=== PATIENT | female | born 1985 | race American Indian/Alaskan Native ===

== ENCOUNTER 2017-10-05 07:32 | Emergency (ER) | payer OTHER ==
[2017-10-05 09:03] LABS: Basophils % (Auto) 0.5 % (0.0-1.8); Eosinophils # (Auto) 0.1 K/mm3 (0.0-0.4); Eosinophils % (Auto) 1.2 % (0.0-4.3); Hematocrit 36.7 % (30.3-42.9); Lymphocytes # (Auto) 2.1 K/mm3 (1.2-5.4); Lymphocytes % (Auto) 36.1 % (13.4-35.0); Mean Corpuscular HGB Conc 33 % (30-34); Mean Corpuscular Hemoglobin 28 pg (28-32); Mean Corpuscular Volume 86 fl (79-97); Monocytes # (Auto) 0.6 K/mm3 (0.0-0.8); Monocytes % (Auto) 9.6 % (0.0-7.3); Platelet Count 362 K/mm3 (140-440); Red Blood Count 4.29 M/mm3 (3.65-5.03); Red Cell Distribution Width 12.9 % (13.2-15.2)
[2017-10-05 09:15] LABS: Alanine Aminotransferase 8 units/L (7-56); BUN/Creatinine Ratio 8; Blood Urea Nitrogen 6 mg/dL (7-17); Hemolysis Index 2
[2017-10-05 09:42] LABS: Bilirubin,Urine NEG (Negative); Blood,Urine NEG (Negative); Color,Urine Yellow (Yellow); Mucus,Urine FEW /HPF; Protein,Urine <15 mg/dL mg/dL (Negative); Urobilinogen,Urine < 2.0 mg/dL (<2.0)
[2017-10-05] MEDS ORDERED: SUBLIMAZE IV ONE ×2 (10:53→13:15)
[2017-10-05] MEDS ORDERED: NACL 0.9% 1000 ML 1,000 ML IV ONE (10:53)
[2017-10-05] MEDS ORDERED: ZOFRAN IV ONE (10:53)
--- NOTE | 2017-10-05 10:58 | Emergency Department Report ---
HPI - General Chief Complaint: Abdominal Pain Time Seen by Provider: 10/05/17 10:44 - HPI HPI: Room 24 The patient is a 31-year-old female presenting with a chief complaint abdominal pain. The patient states for the past 4 days she's had a constant right lower quadrant abdominal pain described as sharp in nature. Patient states Tylenol does not help. Patient denies nausea vomiting or diarrhea. Patient denies fever. Patient denies dysuria, hematuria or vaginal discharge. The patient states her last meal occurred at midnight. Patient states she does have an appetite "now." The patient gives her pain score 10/10 Location: Right lower quadrant abdomen Duration: Constant 4 days Quality: Sharp Severity: 10/10 Modifying factors: [see above] Context: [see above] Mode of transportation: [not driving] ED Past Medical Hx - Past Medical History Hx Asthma: Yes Additional medical history: ulcer - Surgical History Past Surgical History?: No - Family History Family history: no significant - Social History Smoking Status: Never Smoker Substance Use Type: None (denies illicit drug use) - Medications Home Medications: Home Medications Medication Instructions Recorded Confirmed Last Taken Type Docusate Sodium [Colace] 100 mg PO BID PRN #20 capsule 10/05/17 Unknown Rx HYDROcodone/APAP 5-325 [[place] 1 - 2 each PO Q6HR PRN #14 tablet 10/05/17 Unknown Rx 5/325] ED Review of Systems ROS: Stated complaint: RIGHT LOWER ABD PAIN Other details as noted in HPI Constitutional: denies: fever Gastrointestinal: abdominal pain. denies: nausea, vomiting, diarrhea Genitourinary: denies: dysuria, hematuria, discharge Physical Exam - Physical Exam Vital Signs: Vital Signs 10/05/17 07:42 Temperature 98.9 F Pulse Rate 75 Respiratory 18 Rate Blood Pressure 135/84 O2 Sat by Pulse 99 Oximetry Physical Exam: GENERAL: The patient is well-developed well-nourished female lying on stretcher not appearing to be in acute distress. [] HEENT: Normocephalic. Atraumatic. Extraocular motions are intact. Patient has moist mucous membranes. NECK: Supple. Trachea midline CHEST/LUNGS: Clear to auscultation. There is no respiratory distress noted. HEART/CARDIOVASCULAR: Regular. There is no tachycardia. There is no gallop rub or murmur. ABDOMEN: Abdomen is soft, with tenderness to palpation in the right lower quadrant. Absent Pabon's sign. Patient has normal bowel sounds. There is no abdominal distention. SKIN: There is no rash. There is no edema. There is no diaphoresis. NEURO: The patient is awake, alert, and oriented. The patient is cooperative. The patient has normal speech MUSCULOSKELETAL: There is no evidence of acute injury. ED Course Vital Signs 10/05/17 07:42 Temperature 98.9 F Pulse Rate 75 Respiratory 18 Rate Blood Pressure 135/84 O2 Sat by Pulse 99 Oximetry - Reevaluation(s) Reevaluation #1: 10/05/17 12:57 Ventral hernia easily reduced with direct pressure. ED Medical Decision Making - Lab Data Result diagrams: 10/05/17 08:35 10/05/17 08:35 Laboratory Tests 10/05/17 10/05/17 10/05/17 08:28 08:35 08:35 WBC 6.0 RBC 4.29 Hgb 12.0 Hct 36.7 MCV 86 MCH 28 MCHC 33 RDW 12.9 L Plt Count 362 Lymph % (Auto) 36.1 H Starke % (Auto) 9.6 H Eos % (Auto) 1.2 Baso % (Auto) 0.5 Lymph # 2.1 Starke # 0.6 Eos # 0.1 Baso # 0.0 Seg Neutrophils % 52.6 Seg Neutrophils # 3.1 Sodium 142 Potassium 4.1 Chloride 103.6 Carbon Dioxide 27 Anion Gap 16 BUN 6 L Creatinine 0.8 Estimated GFR > 60 BUN/Creatinine Ratio 8 Glucose 84 Calcium 9.0 Total Bilirubin 0.40 AST 17 ALT 8 Alkaline Phosphatase 45 Total Protein 8.0 Albumin 4.0 Albumin/Globulin Ratio 1.0 HCG, Qual Urine Color Yellow Urine Turbidity Clear Urine pH 7.0 Ur Specific Cunningham 1.006 Urine Protein <15 mg/dl Urine Glucose (UA) Neg Urine Ketones Neg Urine Blood Neg Urine Nitrite Neg Urine Bilirubin Neg Urine Urobilinogen < 2.0 Ur Leukocyte Esterase Tr Urine WBC (Auto) 2.0 Urine RBC (Auto) 2.0 U Epithel Cells (Auto) 3.0 Urine Mucus Few 10/05/17 08:35 WBC RBC Hgb Hct MCV MCH MCHC RDW Plt Count Lymph % (Auto) Starke % (Auto) Eos % (Auto) Baso % (Auto) Lymph # Starke # Eos # Baso # Seg Neutrophils % Seg Neutrophils # Sodium Potassium Chloride Carbon Dioxide Anion Gap BUN Creatinine Estimated GFR BUN/Creatinine Ratio Glucose Calcium Total Bilirubin AST ALT Alkaline Phosphatase Total Protein Albumin Albumin/Globulin Ratio HCG, Qual Negative Urine Color Urine Turbidity Urine pH Ur Specific Cunningham Urine Protein Urine Glucose (UA) Urine Ketones Urine Blood Urine Nitrite Urine Bilirubin Urine Urobilinogen Ur Leukocyte Esterase Urine WBC (Auto) Urine RBC (Auto) U Epithel Cells (Auto) Urine Mucus - Radiology Data Radiology results: report reviewed (CT abdomen and pelvis), image reviewed (CT abdomen and pelvis) [facility] [address] [place] [address] Cat Scan Report Signed Patient: NATI PERALES MR#: [id number] : 1985 Acct:[id number] Age/Sex: 31 / F ADM Date: 10/05/17 Loc: ED Attending Dr: Ordering Physician: KELY CHAVARRIA MD Date of Service: 10/05/17 Procedure(s): CT abdomen pelvis w con Accession Number(s): [id number] cc: KELY CHAVARRIA MD CT scan of abdomen and pelvis with IV contrast: History: Right lower quadrant abdominal pain. Findings: Normal lung bases. No pleural or pericardial effusion. Normal liver spleen pancreas and gallbladder. Normal adrenals kidney parenchyma and bladder. No free intraperitoneal fluid or air. No evidence of adenopathy. Normal aorta. Fluid-filled loops of small bowel without bowel distention. There is a moderate size ventral hernia noted containing loops of small bowel. Gaseous colon with stool in colon. Normal appendix. Impression: Moderate size ventral hernia containing loops of small bowel. No bowel distention. Transcribed By: PTP Dictated By: SUSAN HERRERA MD Electronically Authenticated By: SUSAN HERRERA MD Signed Date/Time: 10/05/17 122 DD/ 19 TD/TT: 10/05/171225 - Differential Diagnosis appendicitis, renal colic, UTI, pyelonephritis Critical care attestation.: If time is entered above; I have spent that time in minutes in the direct care of this critically ill patient, excluding procedure time. ED Disposition Clinical Impression: Ventral hernia Disposition: DC-01 TO HOME OR SELFCARE Is pt being admited?: No Does the pt Need Aspirin: No Condition: Stable Instructions: Abdominal Pain (ED), Hiatal Hernia (ED) Additional Instructions: Return to the emergency department immediately should you develop worsening symptoms, fever, inability to tolerate food or liquid or any other concerns. Prescriptions: Docusate Sodium [Colace] 100 mg PO BID PRN #20 capsule PRN Reason: Constipation HYDROcodone/APAP 5-325 [[place] 5/325] 1 - 2 each PO Q6HR PRN #14 tablet PRN Reason: Pain Referrals: PRIMARY CARE, [Primary Care Provider] - 3-5 Days BRANDEE DONOHUE MD [Staff Physician] - [facility] (Dr. Donohue is a surgeon. Please follow up with him for further evaluation of your hernia) Time of Disposition: 12:59
[2017-10-05] MEDS ORDERED: NACL ONE (11:02)
--- NOTE | 2017-10-05 12:47 | Cat Scan Report ---
CT scan of abdomen and pelvis with IV contrast: History: Right lower quadrant abdominal pain. Findings: Normal lung bases. No pleural or pericardial effusion. Normal liver spleen pancreas and gallbladder. Normal adrenals kidney parenchyma and bladder. No free intraperitoneal fluid or air. No evidence of adenopathy. Normal aorta. Fluid-filled loops of small bowel without bowel distention. There is a moderate size ventral hernia noted containing loops of small bowel. Gaseous colon with stool in colon. Normal appendix. Impression: Moderate size ventral hernia containing loops of small bowel. No bowel distention.
[2017-10-05 16:15] VITALS: BP 132/82
== END 2017-10-05 16:12 | disposition home or self-care (01) ==
LOC: ED 07:32
DX: K43.9 Ventral hernia without obstruction or gangrene (principal)
CPT/HCPCS: 36415; 74177; 80053; 81001; 84703; 85025; 96374; 96375; 99284; J3010; Q9967

== ENCOUNTER 2017-11-12 10:32 | Emergency (ER) | payer SELFPAY ==
[2017-11-12 12:24] LABS: Bilirubin,Urine NEG (Negative); Blood,Urine NEG (Negative); Color,Urine Straw (Yellow); Protein,Urine <15 mg/dL mg/dL (Negative); Urobilinogen,Urine < 2.0 mg/dL (<2.0); WBC,Urine < 1.0 /HPF (0.0-6.0)
[2017-11-12 12:26] LABS: HCG Qualitative,Urine Negative (Negative)
[2017-11-12 12:36] LABS: Basophils % (Auto) 0.8 % (0.0-1.8); Eosinophils # (Auto) 0.1 K/mm3 (0.0-0.4); Eosinophils % (Auto) 0.9 % (0.0-4.3); Hematocrit 35.4 % (30.3-42.9); Hemoglobin 11.7 gm/dl (10.1-14.3); Lymphocytes # (Auto) 1.7 K/mm3 (1.2-5.4); Lymphocytes % (Auto) 29.2 % (13.4-35.0); Mean Corpuscular HGB Conc 33 % (30-34); Mean Corpuscular Hemoglobin 29 pg (28-32); Mean Corpuscular Volume 87 fl (79-97); Monocytes # (Auto) 0.5 K/mm3 (0.0-0.8); Monocytes % (Auto) 8.5 % (0.0-7.3); Platelet Count 371 K/mm3 (140-440); Red Blood Count 4.05 M/mm3 (3.65-5.03); Red Cell Distribution Width 12.9 % (13.2-15.2)
[2017-11-12 12:40] LABS: Alanine Aminotransferase 12 units/L (7-56); BUN/Creatinine Ratio 15; Blood Urea Nitrogen 9 mg/dL (7-17); Calcium 9.1 mg/dL (8.4-10.2); Hemolysis Index 41; Lipase 33 units/L (13-60)
[2017-11-12] MEDS ORDERED: NORCO 5/325 PO ONE (15:02)
[2017-11-12 15:03] VITALS: BP 125/76
--- NOTE | 2017-11-12 15:08 | Emergency Department Report ---
Chief Complaint: Abdominal Pain Stated Complaint: SEVERE PAIN/VENTRAL HERNIA Time Seen by Provider: 11/12/17 14:53 - HPI History of Present Illness: 31-year-old female presents to the emergency department with complaint of right-sided abdominal pain. She has a history of a ventral hernia and in late September she was here with alleged strangulation of the hernia that was reduced with direct pressure at that time. She had a CT scan that shows a moderate small bowel filled ventral hernia. She was set up to follow up with Dr. Gustafson but says she is awaiting sales agent financial report service to get the hernia repaired. Over the past one or 2 days the pain has increased and she is out of the pain medication. She denies any nausea, vomiting, fever, constipation. - ROS Review of Systems: Positive for right-sided abdominal pain Negative for nausea, vomiting, fever, constipation - Exam Vital Signs: Vital Signs 11/12/17 11/12/17 11:27 15:02 Temperature 98.8 F 99.1 F Pulse Rate 93 H 72 Respiratory 20 16 Rate Blood Pressure 126/85 Blood Pressure 125/76 [Right] O2 Sat by Pulse 99 100 Oximetry Physical Exam: The patient has moderate right-sided abdominal tenderness to palpation. Normal bowel sounds. She is awake and alert in no apparent distress. MSE screening note: Focused history and physical exam performed. Due to findings the following was ordered: Patient's labs have been unremarkable thus far. I have added a lactic acid level. She will start off with a two-view abdominal x-ray and a right upper quadrant ultrasound. She has been given a [place] for discomfort. ED Medical Decision Making - Lab Data Result diagrams: 11/12/17 11:53 11/12/17 11:53 ED Disposition for MSE Condition: Stable Instructions: Abdominal Pain (ED) Referrals: PRIMARY CARE, [Primary Care Provider] - 3-5 Days
--- NOTE | 2017-11-12 15:45 | XRay Report ---
ABDOMEN, 2 views: History: Abdomen pain. There is no evidence of free air beneath the diaphragms. The gas pattern within the abdomen is unremarkable. There is no evidence of bowel dilatation, significant air-fluid levels, or pathologic calcifications. Organ shadows are unremarkable. IMPRESSION: Unremarkable abdomen.
--- NOTE | 2017-11-12 16:42 | Ultrasound Report ---
FINAL REPORT EXAM: US ABDOMEN LIMITED HISTORY: RUQ abd pain COMPARISON: None. TECHNIQUE: Multiple transverse and longitudinal sonographic grayscale images of the right upper quadrant of the abdomen were obtained, supplemented with Doppler imaging. FINDINGS: Pancreas:Visualized portions normal. Liver appearance: Normal echogenicity. No focal internal lesion.No biliary ductal dilatation. CBD: 1.3mm. Gallbladder: Gallbladder is mildly contracted. There are no stones. There is no pericholecystic fluid. Right kidney length: 10.3 cm. Right kidney appearance: Normal cortical thickness. No hydronephrosis. No echogenic focus or mass. IMPRESSION: Contracted gallbladder. No gallstones. No evidence of cholecystitis.
--- NOTE | 2017-11-12 17:20 | Emergency Department Report ---
HPI - General Chief Complaint: Abdominal Pain Time Seen by Provider: 11/12/17 14:53 - HPI HPI: 31-year-old female presents to the emergency department with complaint of right-sided abdominal pain. She has a history of a ventral hernia and in late September she was here with alleged strangulation of the hernia that was reduced with direct pressure at that time. She had a CT scan that shows a moderate small bowel filled ventral hernia. She was set up to follow up with Dr. Donohue but says she is awaiting senior financial reporting accountant to get the hernia repaired. Over the past one or 2 days the pain has increased and she is out of the pain medication. She denies any nausea, vomiting, fever, constipation. ED Past Medical Hx - Past Medical History Previous Medical History?: Yes Hx Asthma: Yes Additional medical history: ulcer,. abd pain, ventral hernia - Surgical History Past Surgical History?: No - Social History Smoking Status: Never Smoker Substance Use Type: Prescribed - Medications Home Medications: Home Medications Medication Instructions Recorded Confirmed Last Taken Type Docusate Sodium [Colace] 100 mg PO BID PRN #20 capsule 10/05/17 Unknown Rx HYDROcodone/APAP 5-325 [[place] 1 each PO Q6HR PRN #14 tablet 11/12/17 Unknown Rx 5-325 mg TAB] ED Review of Systems ROS: Stated complaint: SEVERE PAIN/VENTRAL HERNIA Other details as noted in HPI Comment: All other systems reviewed and negative Constitutional: denies: chills, fever Eyes: denies: eye pain, eye discharge, vision change ENT: denies: ear pain, throat pain Respiratory: denies: cough, shortness of breath, wheezing Cardiovascular: denies: chest pain, palpitations Gastrointestinal: abdominal pain. denies: vomiting Genitourinary: denies: urgency, dysuria, discharge Musculoskeletal: denies: back pain, joint swelling, arthralgia Skin: denies: rash, lesions Neurological: denies: headache, weakness, paresthesias Physical Exam - Physical Exam Vital Signs: Vital Signs 11/12/17 11/12/17 11:27 15:02 Temperature 98.8 F 99.1 F Pulse Rate 93 H 72 Respiratory 20 16 Rate Blood Pressure 126/85 Blood Pressure 125/76 [Right] O2 Sat by Pulse 99 100 Oximetry Physical Exam: GENERAL: The patient is well-developed well-nourished. HENT: Normocephalic. Atraumatic. Patient has moist mucous membranes. EYES: Extraocular motions are intact. NECK: Supple. Trachea is midline. CHEST/LUNGS: Clear to auscultation. There is no respiratory distress noted. HEART/CARDIOVASCULAR: Regular. There is no tachycardia. There is no murmur. ABDOMEN: Abdomen is soft. There is right-sided abdominal pain but no guarding. There appears to be a reducible umbilical hernia. Patient has normal bowel sounds. SKIN: Skin is warm and dry. NEURO: The patient is awake, alert, and oriented. The patient is cooperative. The patient has no focal neurologic deficits. The patient has normal speech. MUSCULOSKELETAL: There is no tenderness or deformity. There is no limitation range of motion. There is no evidence of acute injury. ED Course Vital Signs 11/12/17 11/12/17 11:27 15:02 Temperature 98.8 F 99.1 F Pulse Rate 93 H 72 Respiratory 20 16 Rate Blood Pressure 126/85 Blood Pressure 125/76 [Right] O2 Sat by Pulse 99 100 Oximetry ED Medical Decision Making - Lab Data Result diagrams: 11/12/17 11:53 11/12/17 11:53 - Radiology Data Radiology results: report reviewed, image reviewed interpreted by me: Abdominal x-ray shows nonspecific nonobstructive bowel gas. EXAM: US ABDOMEN LIMITED HISTORY: RUQ abd pain COMPARISON: None. TECHNIQUE: Multiple transverse and longitudinal sonographic grayscale images of the right upper quadrant of the abdomen were obtained, supplemented with Doppler imaging. FINDINGS: Pancreas:Visualized portions normal. Liver appearance: Normal echogenicity. No focal internal lesion.No biliary ductal dilatation. CBD: 1.3mm. Gallbladder: Gallbladder is mildly contracted. There are no stones. There is no pericholecystic fluid. Right kidney length: 10.3 cm. Right kidney appearance: Normal cortical thickness. No hydronephrosis. No echogenic focus or mass. IMPRESSION: Contracted gallbladder. No gallstones. No evidence of cholecystitis. Transcribed By: PIERO Dictated By: ROSEMARY PALACIOS MD Electronically Authenticated By: ROSEMARY PALACIOS MD Signed Date/Time: 11/12/17 5544 - Medical Decision Making This patient presents with some right-sided abdominal pain and history of a ventral hernia. On physical exam she is tender to the right side but there is no palpable mass or fullness that would be consistent with any straining related or incarcerated hernia. She does have a visible and palpable umbilical hernia that is reducible easily. Vital signs stable throughout her ED course including being afebrile. Labs were unremarkable including no leukocytosis, no electrolyte abnormalities and no elevation in the lactic acid level. An abdominal x-ray was done that does not show any acute process including no signs of any obstruction. Because of her right upper quadrant discomfort, an ultrasound was done that shows a contracted gallbladder but otherwise no cholecystitis, cholelithiasis, signs of pancreatitis or any abnormal liver appearance. The patient has previously seen Dr. Donohue and regarding her hernia and he happened to be in the emergency department and was gracious enough to come and see the patient. He felt her abdomen and agrees that the patient does not appear to have any signs of any strangulated or incarcerated hernia. He recommends follow-up with him in the office in 2 weeks. The patient was prescribed some pain medication. We discussed decreasing exertion and heavy lifting to decrease the intra-abdominal pressure. We discussed continuing to use the stool softeners. She was instructed to return to the emergency Department with any worsening of her symptoms, abdominal distention, development of fever or vomiting, or with any acute distress. She understands and agrees to the plan. - Differential Diagnosis hernia, cholecystitis, cholelithiasis, bowel obstruction Critical Care Time: No Critical care attestation.: If time is entered above; I have spent that time in minutes in the direct care of this critically ill patient, excluding procedure time. ED Disposition Clinical Impression: Ventral hernia Qualifiers: Obstruction and gangrene presence: without obstruction or gangrene Qualified Code(s): K43.9 - Ventral hernia without obstruction or gangrene Abdominal pain Qualifiers: Abdominal location: unspecified location Qualified Code(s): R10.9 - Unspecified abdominal pain Disposition: DC-01 TO HOME OR SELFCARE Is pt being admited?: No Condition: Stable Instructions: Ventral Hernia (ED), Abdominal Pain (ED) Additional Instructions: Please follow up with the general surgeon in 2 weeks. Return to the emergency Department with any worsening of your symptoms, intractable vomiting, development of fever, or with any acute distress. You have been prescribed a medication that is sedating and therefore should not be taken prior to driving, working, and responsible for children and in no way should be mixed with alcohol of any quantity. I do not want you to be immobile, however you should try and decrease intra- abdominal pressure as this could exacerbate your hernia. Please do not try and lift anything that is heavier than 10 or 15 pounds. You may want to continue and use stool softeners. Prescriptions: HYDROcodone/APAP 5-325 [[place] 5-325 mg TAB] 1 each PO Q6HR PRN #14 tablet PRN Reason: Pain Referrals: BRANDEE DONOHUE MD [Staff Physician] - 11/26/17 Time of Disposition: 17:20
== END 2017-11-12 17:20 | disposition home or self-care (01) ==
LOC: ED 10:32
DX: K43.9 Ventral hernia without obstruction or gangrene (principal); J45.909 Unspecified asthma, uncomplicated
CPT/HCPCS: 36415; 74019; 76705; 80053; 81001; 81025; 82140; 83690; 85025; 99284

== ENCOUNTER 2018-04-02 12:45 | Day surgery (SDC) | payer SELFPAY ==
--- NOTE | 2018-04-02 14:15 | Anesthesia Consultation ---
Anesthesia Consult and Med Hx Date of service: 04/02/18 - Airway Anesthetic Teeth Evaluation: Good ROM Head & Neck: Adequate Mental/Hyoid Distance: Adequate Mallampati Class: Class I Intubation Access Assessment: Good - Pulmonary Exam CTA: Yes - Cardiac Exam Cardiac Exam: RRR - Pre-Operative Health Status ASA Pre-Surgery Classification: ASA2 Proposed Anesthetic Plan: General - Pulmonary Hx Asthma: Yes (reactive airway) - Additional Comments Anesthesia Medical History Comments: No family history of problems
[2018-04-02] MEDS ORDERED: DEMEROL IV PRN (14:16)
[2018-04-02] MEDS ORDERED: ZOFRAN IV PRN (14:16)
[2018-04-02] MEDS ORDERED: SUBLIMAZE IV PRN (14:16)
[2018-04-02] MEDS ORDERED: DILAUDID IV PRN (14:16)
[2018-04-02] MEDS ORDERED: ANCEF/STERILE WATER 2 GM/20 ML IV NR (15:00)
[2018-04-02] MEDS ORDERED: VERSED IV NR (15:00)
[2018-04-02] MEDS ORDERED: LACTATED RINGERS 1,000 ML IV SCH (15:00)
[2018-04-02 15:08] LABS: Hemoglobin 12.5 gm/dl (10.1-14.3); Red Blood Count 4.57 M/mm3 (3.65-5.03)
[2018-04-02 15:09] LABS: Basophils % (Auto) 0.4 % (0.0-1.8); Eosinophils % (Auto) 0.7 % (0.0-4.3); Hematocrit 38.4 % (30.3-42.9); Lymphocytes % (Auto) 45.8 % (13.4-35.0); Mean Corpuscular HGB Conc 33 % (30-34); Mean Corpuscular Hemoglobin 27 pg (28-32); Mean Corpuscular Volume 84 fl (79-97); Monocytes # (Auto) 0.3 K/mm3 (0.0-0.8); Monocytes % (Auto) 8.1 % (0.0-7.3); Platelet Count 396 K/mm3 (140-440); Red Cell Distribution Width 13.9 % (13.2-15.2)
[2018-04-02] MEDS ORDERED: DIPRIVAN 10 MG/ML IV ONE (16:46)
[2018-04-02] MEDS ORDERED: SUBLIMAZE ONE (16:46)
[2018-04-02] MEDS ORDERED: MARCAINE 0.5% INFILTRATI ONE ×2 (17:02→17:16)
[2018-04-02] MEDS ORDERED: XYLOCAINE MPF 2% ONE (17:06)
[2018-04-02] MEDS ORDERED: TORADOL ONE (17:06)
[2018-04-02] MEDS ORDERED: DECADRON ONE (17:06)
[2018-04-02] MEDS ORDERED: ZOFRAN ONE (17:06)
[2018-04-02] MEDS ORDERED: ZEMURON IV ONE (17:06)
[2018-04-02] MEDS ORDERED: BLOXIVERZ ONE (17:07)
[2018-04-02] MEDS ORDERED: ROBINUL ONE (17:07)
[2018-04-02] MEDS ORDERED: NACL 0.9% IR ONE ×2 (17:14)
[2018-04-02] MEDS ORDERED: PERCOCET 5/325 PO PRN (19:29)
[2018-04-02 20:48] VITALS: BP 120/78
--- NOTE | 2018-04-02 22:17 | Operative Report ---
PREOPERATIVE DIAGNOSIS: Umbilical hernia. POSTOPERATIVE DIAGNOSIS: Umbilical hernia. SURGERY: Laparoscopic repair of umbilical hernia with application of medium sized Ventralex. ANESTHESIA: General. BLOOD LOSS: Minimal. FINDINGS: The patient had a defect in the fascia that is about 2 x 2 cm. This was handed by applying a Ventralex graft with a scope. DESCRIPTION OF PROCEDURE: With the patient in supine position, I cleansed and draped in the usual fashion. I made a small incision in the left lower quadrant. With the Veress needle, I was able to introduce CO2 of pressure 15 for which #5 trocar was inserted then another trocar #5 was inserted in the left upper quadrant area. Then, 2 more trocars in the right lower and right upper. With the use of the camera, I was able to evaluate the situation. There is barely about 1.5-2 cm defect in the fascia at the level of the umbilicus. So a medium sized Ventralex graft was inserted within the dome of the hernial sac. Then, I was able to apply 2 rows of brown all around in 2 rows. I was well satisfied, had good hemostasis. Then, the trocars were removed one by one sustaining no bleeding from the insertion site. Then, the wounds were closed with 4-0 Vicryl for intracuticular layer after closing the fascia with use of 4-0 Vicryl interrupted for the fascia. Bandage were applied. The patient was then transferred to the recovery room in good condition. JOB# [id number] HARDY/BETHEL
--- NOTE | 2018-04-03 00:51 | Discharge Summary ---
FINAL CLINICAL DIAGNOSIS: Umbilical hernia about 2.5 cm. HOSPITAL COURSE: This patient came to my office last week because of the above with some pain to the area. She was evaluated and she was admitted this time for definitive surgical intervention where she underwent a laparoscopic repair of umbilical hernia with application of Ventralex graft. The examination upon admission was essentially negative other than the above. We are going to have her go home later this afternoon and to see me in the office in about 10 days. JOB# [id number] HARDY/BETHEL
== END 2018-04-02 20:50 | disposition home or self-care (01) ==
LOC: OR 12:45
PROVIDERS: ATTEND Surgery
DX: K42.9 Umbilical hernia without obstruction or gangrene (principal); J45.909 Unspecified asthma, uncomplicated; Z79.899 Other long term (current) drug therapy; Z98.890 Other specified postprocedural states
CPT/HCPCS: 36415; 49652; 81025; 85025; A4217; C1781; J0690; J1100; J1170; J1885; J2250; J2405; J2704; J2710; J3010; J7120

== ENCOUNTER 2021-03-30 20:20 | Emergency (ER) | payer OTHER ==
[2021-03-30] MEDS ORDERED: METOCLOPRAMIDE 10 MG/2 ML INJ IV ONE (21:43)
[2021-03-30] MEDS ORDERED: DICYCLOMINE 20 MG TAB PO ONE (21:43)
[2021-03-30] MEDS ORDERED: diphenhydrAMINE 50 MG/ML VIAL IV ONE (21:43)
[2021-03-30] MEDS ORDERED: SODIUM CHLORIDE 0.9% 1000 ML 1,000 ML IV ONE (21:43)
[2021-03-30] MEDS ORDERED: FAMOTIDINE 20 MG/2 ML INJ IV ONE (21:43)
[2021-03-30 23:00] LABS: Basophils % (Auto) 0.4 % (0.0-1.8); Eosinophils % (Auto) 0.3 % (0.0-4.3); Hematocrit 41.4 % (30.3-42.9); Lymphocytes # (Auto) 1.8 K/mm3 (1.2-5.4); Lymphocytes % (Auto) 28.8 % (13.4-35.0); Mean Corpuscular HGB Conc 32 % (30-34); Mean Corpuscular Volume 88 fl (79-97); Monocytes # (Auto) 0.5 K/mm3 (0.0-0.8); Platelet Count 320 K/mm3 (140-440); Red Blood Count 4.72 M/mm3 (3.65-5.03); Red Cell Distribution Width 12.4 % (13.2-15.2)
--- NOTE | 2021-03-30 23:16 | Emergency Department Report ---
ED Abdominal Pain HPI - General Chief Complaint: Abdominal Pain Stated Complaint: ABDOMINAL PAIN Time Seen by Provider: 03/30/21 21:43 Source: patient Mode of arrival: Ambulatory Limitations: No Limitations - History of Present Illness Initial Comments: This is a 35-year-old female nontoxic, well nourished in appearance, no acute signs of distress presents to the ED with c/o of nausea and vomiting and abdominal pain 2 days. Patient describes vomiting as food content and yellow gastric acid. Patient describes abdominal pain as cramping and aching with level of 8/10 diffuse. Patient denies chest pain, short of breath, fever, hemoptysis, blood in stool, chills, headache, stiff neck, numbness or tingling. Patient denies any diarrhea or constipation. Denies any blood in stool. Patient denies any recent travels. Patient stated allergies to amoxicillin. Patient denies any significant past medical history. MD Complaint: abdominal pain -: days(s) Location: diffuse Radiation: none Migration to: no migration Severity: mild Severity scale (0 -10): 8 Quality: aching Consistency: constant Improves With: nothing Worsens With: nothing Associated Symptoms: nausea, vomiting. denies: diarrhea, fever, chills, constipation, dysuria, hematemesis, hematochezia, melena, hematuria, anorexia, syncope - Related Data Home Medications Medication Instructions Recorded Confirmed Last Taken Acetaminophen [Tylenol Extra 500 mg PO BID 04/02/18 04/02/18 04/01/18 Strength] Omeprazole 20 mg PO QDAY PRN 04/02/18 04/02/18 Unknown raNITIdine HCL [Zantac 300 MG TAB] 300 mg PO QDAY PRN 04/02/18 04/02/18 Unknown Previous Rx's Medication Instructions Recorded Last Taken Type HYDROcodone/APAP 5-325 [Arcadia 1 each PO Q6HR PRN #14 tablet 11/12/17 Unknown Rx 5-325 mg TAB] Ibuprofen [Motrin] 800 mg PO Q8HR #30 tablet 07/04/18 Unknown Rx traMADoL [Ultram 50 MG tab] 50 mg PO Q6HR PRN #20 tablet 07/04/18 Unknown Rx Dicyclomine [Bentyl] 20 mg PO BID PRN #12 bottle 03/31/21 Unknown Rx Ondansetron [Zofran Odt] 4 mg PO Q8HR PRN #12 tab.rapdis 03/31/21 Unknown Rx Allergies Allergy/AdvReac Type Severity Reaction Status Date / Time amoxicillin [From Amoxil] Allergy Unknown Verified 03/30/21 21:43 ED Review of Systems ROS: Stated complaint: ABDOMINAL PAIN Other details as noted in HPI Comment: All other systems reviewed and negative Constitutional: denies: chills, fever Eyes: denies: eye pain, eye discharge, vision change ENT: denies: ear pain, throat pain Respiratory: denies: cough, shortness of breath, wheezing Cardiovascular: denies: chest pain, palpitations Endocrine: no symptoms reported Gastrointestinal: abdominal pain, nausea, vomiting. denies: diarrhea, constipation, hematemesis, melena, hematochezia Genitourinary: denies: urgency, dysuria, discharge Musculoskeletal: denies: back pain, joint swelling, arthralgia Skin: denies: rash, lesions Neurological: denies: headache, weakness, paresthesias Psychiatric: denies: anxiety, depression Hematological/Lymphatic: denies: easy bleeding, easy bruising ED Past Medical Hx - Past Medical History Previous Medical History?: Yes Hx Diabetes: No Hx Asthma: Yes (reactive airway) Hx HIV: No Additional medical history: ulcer,. abd pain, ventral hernia - Surgical History Past Surgical History?: Yes Additional Surgical History: ventral hernia repair - Social History Smoking Status: Never Smoker Substance Use Type: None - Medications Home Medications: Home Medications Medication Instructions Recorded Confirmed Last Taken Type HYDROcodone/APAP 5-325 [[place]cad[place] 1 each PO Q6HR PRN #14 tablet 11/12/17 04/02/18 Unknown Rx 5-325 mg TAB] Acetaminophen [Tylenol Extra 500 mg PO BID 04/02/18 04/02/18 04/01/18 History Strength] Omeprazole 20 mg PO QDAY PRN 04/02/18 04/02/18 Unknown History raNITIdine HCL [Zantac 300 MG TAB] 300 mg PO QDAY PRN 04/02/18 04/02/18 Unknown History Ibuprofen [Motrin] 800 mg PO Q8HR #30 tablet 07/04/18 Unknown Rx traMADoL [Ultram 50 MG tab] 50 mg PO Q6HR PRN #20 tablet 07/04/18 Unknown Rx Dicyclomine [Bentyl] 20 mg PO BID PRN #12 bottle 03/31/21 Unknown Rx Ondansetron [Zofran Odt] 4 mg PO Q8HR PRN #12 tab.rapdis 03/31/21 Unknown Rx ED Physical Exam - General Limitations: No Limitations General appearance: alert, in no apparent distress - Head Head exam: Present: atraumatic, normocephalic - Eye Eye exam: Present: normal appearance - Neck Neck exam: Present: normal inspection, full ROM. Absent: lymphadenopathy - Respiratory Respiratory exam: Present: normal lung sounds bilaterally. Absent: respiratory distress, wheezes, rales, rhonchi, stridor, chest wall tenderness, accessory muscle use, decreased breath sounds, prolonged expiratory - Cardiovascular Cardiovascular Exam: Present: regular rate, normal rhythm, normal heart sounds. Absent: bradycardia, tachycardia, irregular rhythm, systolic murmur, diastolic murmur, rubs, gallop - GI/Abdominal GI/Abdominal exam: Present: soft, tenderness (diffuse), normal bowel sounds. Absent: distended, guarding, rebound, rigid - Extremities Exam Extremities exam: Present: full ROM - Back Exam Back exam: Present: normal inspection, full ROM. Absent: tenderness, CVA tenderness (R), CVA tenderness (L), muscle spasm, paraspinal tenderness, vertebral tenderness, rash noted - Neurological Exam Neurological exam: Present: alert, oriented X3, normal gait - Psychiatric Psychiatric exam: Present: normal affect, normal mood - Skin Skin exam: Present: warm, dry, intact, normal color. Absent: rash ED Course Vital Signs 03/30/21 21:40 Temperature 97.5 F L Pulse Rate 63 Respiratory 18 Rate Blood Pressure 122/74 O2 Sat by Pulse 100 Oximetry - Reevaluation(s) Reevaluation #1: 03/30/21 23:16 Patient is speaking in full sentences with no signs of distress noted. ED Medical Decision Making - Lab Data Result diagrams: 03/30/21 21:50 03/30/21 22:10 Lab Results 03/30/21 03/30/21 03/30/21 Range/Units 21:50 21:50 22:10 WBC 6.4 (4.5-11.0) K/mm3 RBC 4.72 (3.65-5.03) M/mm3 Hgb 13.0 (10.1-14.3) gm/dl Hct 41.4 (30.3-42.9) % MCV 88 (79-97) fl MCH 28 (28-32) pg MCHC 32 (30-34) % RDW 12.4 L (13.2-15.2) % Plt Count 320 (140-440) K/mm3 Lymph % (Auto) 28.8 (13.4-35.0) % Russell % (Auto) 8.0 H (0.0-7.3) % Eos % (Auto) 0.3 (0.0-4.3) % Baso % (Auto) 0.4 (0.0-1.8) % Lymph # (Auto) 1.8 (1.2-5.4) K/mm3 Russell # (Auto) 0.5 (0.0-0.8) K/mm3 Eos # (Auto) 0.0 (0.0-0.4) K/mm3 Baso # (Auto) 0.0 (0.0-0.1) K/mm3 Seg Neutrophils % 62.5 (40.0-70.0) % Seg Neutrophils # 4.0 (1.8-7.7) K/mm3 Sodium 142 (137-145) mmol/L Potassium 4.0 (3.6-5.0) mmol/L Chloride 104.4 (98-107) mmol/L Carbon Dioxide 26 (22-30) mmol/L Anion Gap 16 mmol/L BUN 12 (7-17) mg/dL Creatinine 0.8 (0.6-1.2) mg/dL Estimated GFR > 60 ml/min BUN/Creatinine Ratio 15 % Glucose 80 (65-100) mg/dL Calcium 9.2 (8.4-10.2) mg/dL Total Bilirubin 0.60 (0.1-1.2) mg/dL Direct Bilirubin < 0.2 (0-0.2) mg/dL Indirect Bilirubin 0.4 mg/dL AST 25 (5-40) units/L ALT 23 (7-56) units/L Alkaline Phosphatase 62 (35-129) units/L Total Protein 8.8 H (6.3-8.2) g/dL Albumin 4.7 (3.9-5) g/dL Albumin/Globulin Ratio 1.1 % Lipase 41 (13-60) units/L HCG, Qual Negative (Negative) - Radiology Data [facility] [address] [place] [address] Cat Scan Report Signed Patient: NATI PERALES MR#: [id number] : 1985 Acct:[id number] Age/Sex: 35 / F ADM Date: 03/30/21 Loc: ED Attending Dr: Ordering Physician: JACKIE SALOMON NP Date of Service: 03/30/21 Procedure(s): CT abdomen pelvis w con Accession Number(s): [id number] cc: JACKIE SALOMON NP CT ABDOMEN AND PELVIS WITH CONTRAST INDICATION / CLINICAL INFORMATION: Patient complains of abd pain with nausea and vomiting. TECHNIQUE: Axial CT images were obtained through the abdomen and pelvis after 100 cc of Omnipaque [address] scans at this location are performed using CT dose reduction for ALARA by means of automated exposure control. COMPARISON: None available. FINDINGS: LOWER CHEST: No significant abnormality. AORTA / ARTERIES: No significant abnormality. IVC / VEINS: No significant abnormality. LYMPH NODES: No significant adenopathy. COLON: No significant abnormality. APPENDIX: No significant abnormality. STOMACH / SMALL BOWEL: No significant abnormality. PERITONEUM: No free fluid. No free air. No fluid collection. LIVER: No significant abnormality. GALLBLADDER: No significant abnormality. BILE DUCTS: No significant abnormality. PANCREAS: No significant abnormality. SPLEEN: No significant abnormality. ADRENALS: No significant abnormality. RIGHT KIDNEY / URETER: No significant abnormality. LEFT KIDNEY / URETER: No significant abnormality. URINARY BLADDER: No significant abnormality. REPRODUCTIVE ORGANS: There is a 2.7 cm cyst involving the left adnexa. Likely fibroid within the uterus. SKELETAL SYSTEM: No significant abnormality. ADDITIONAL FINDINGS: None. IMPRESSION: 1. There is a 2.7 cm cyst within the left adnexa, likely an ovarian cyst. 2. Normal appendix. 3. Other findings as above. Signer Name: Jimmie Palmer DO Signed: 03/31/2021 12:26 AM Workstation Name: [id number] Transcribed By: QUINN Dictated By: JIMMIE PALMER DO Electronically Authenticated By: JIMMIE PALMER DO Signed Date/Time: 03/31/2125 DD/ TD/TT: - Medical Decision Making This is a 35-year-old female that presents with abdominal pain. Patient is stable and was examined by me. There is no abdominal tenderness. Negative signs of symptoms of appendicitis. Labs obtained. UA obtained. CT of abdomen obtained and dictated by the radiologist. Patient is notified of the report with no questions noted by the patient. Vital signs are stable prior to discharge. Patient received medical treatment in the ED which patient stated symptoms has resovled and subsided. Was instructed note to operate any machinery due to possible drowsiness and stated someone will drive the patient home. A by mouth challenge has been obtained and patient tolerated well with no nausea vomiting. Patient was notified of strict precatuions of appendictis symptoms and to return to the ED if symptoms occurs as soon as possible. Patient was also instructed to Follow-up with a primary care doctor in 3-5 days or if symptoms worsen and continue return to emergency room as soon as possible. At time of discharge, the patient does not seem toxic or ill in appearance. No acute signs of distress noted. Patient agrees to discharge treatment plan of care. No further questions noted by the patient. Critical care attestation.: If time is entered above; I have spent that time in minutes in the direct care of this critically ill patient, excluding procedure time. ED Disposition Clinical Impression: Abdominal pain Qualifiers: Abdominal location: generalized Qualified Code(s): R10.84 - Generalized abdominal pain Nausea & vomiting Qualifiers: Vomiting type: unspecified Vomiting Intractability: non-intractable Qualified Code(s): R11.2 - Nausea with vomiting, unspecified Disposition: 01 HOME / SELF CARE / HOMELESS Is pt being admited?: No Does the pt Need Aspirin: No Condition: Stable Instructions: Abdominal Pain (ED), Abdominal Pain, Adult, [id number], Nausea and Vomiting, Adult Additional Instructions: Follow-up with a primary care and eap clinician doctor in 3-5 days or if symptoms worsen and continue return to emergency room as soon as possible. Prescriptions: Dicyclomine [Bentyl] 20 mg PO BID PRN #12 bottle PRN Reason: abdominal pain Ondansetron [Zofran Odt] 4 mg PO Q8HR PRN #12 tab.rapdis PRN Reason: Nausea Referrals: PRIMARY MD NOAH [Referring] - 3-5 Days MIRACLE ALCANTARA MD [Staff Physician] - 3-5 Days [facility] [Provider Group] - 3-5 Days Forms: Work/School Release Form(ED) Time of Disposition: 01:00
[2021-03-30 23:17] LABS: Alanine Aminotransferase 23 units/L (7-56); Albumin 4.7 g/dL (3.9-5); BUN/Creatinine Ratio 15; Blood Urea Nitrogen 12 mg/dL (7-17); Calcium 9.2 mg/dL (8.4-10.2); Hemolysis Index 6
[2021-03-30 23:20] LABS: Bilirubin,Direct < 0.2 mg/dL (0-0.2)
--- NOTE | 2021-03-31 00:30 | Cat Scan Report ---
CT ABDOMEN AND PELVIS WITH CONTRAST INDICATION / CLINICAL INFORMATION: Patient complains of abd pain with nausea and vomiting. TECHNIQUE: Axial CT images were obtained through the abdomen and pelvis after 100 cc of Omnipaque [address] scans at this location are performed using CT dose reduction for ALARA by means of automated exposure control. COMPARISON: None available. FINDINGS: LOWER CHEST: No significant abnormality. AORTA / ARTERIES: No significant abnormality. IVC / VEINS: No significant abnormality. LYMPH NODES: No significant adenopathy. COLON: No significant abnormality. APPENDIX: No significant abnormality. STOMACH / SMALL BOWEL: No significant abnormality. PERITONEUM: No free fluid. No free air. No fluid collection. LIVER: No significant abnormality. GALLBLADDER: No significant abnormality. BILE DUCTS: No significant abnormality. PANCREAS: No significant abnormality. SPLEEN: No significant abnormality. ADRENALS: No significant abnormality. RIGHT KIDNEY / URETER: No significant abnormality. LEFT KIDNEY / URETER: No significant abnormality. URINARY BLADDER: No significant abnormality. REPRODUCTIVE ORGANS: There is a 2.7 cm cyst involving the left adnexa. Likely fibroid within the uter us. SKELETAL SYSTEM: No significant abnormality. ADDITIONAL FINDINGS: None. IMPRESSION: 1. There is a 2.7 cm cyst within the left adnexa, likely an ovarian cyst. 2. Normal appendix. 3. Other findings as above. Signer Name: Jimime Lama DO Signed: 03/31/2021 12:26 AM Workstation Name: [id number]
[2021-03-31 01:36] VITALS: BP 123/60
== END 2021-03-31 01:35 | disposition home or self-care (01) ==
LOC: ED 20:20
DX: R10.9 Unspecified abdominal pain (principal); R11.2 Nausea with vomiting, unspecified; J45.909 Unspecified asthma, uncomplicated; Z88.0 Allergy status to penicillin
CPT/HCPCS: 36415; 74177; 80048; 80076; 83690; 84703; 85025; 96361; 96374; 96375; 99284; J1200; J2765; J7030; Q9967

== ENCOUNTER 2021-04-08 07:41 | Emergency (ER) | payer SELFPAY ==
[2021-04-08] MEDS ORDERED: LORazepam 2 MG/ML VIAL IV ONE (08:07)
[2021-04-08] MEDS ORDERED: LIDOCAINE VISCOUS 2% 15 ML ORAL LIQD PO ONE (08:07)
[2021-04-08] MEDS ORDERED: ALUM-MAG HYDROXIDE-SIMETHICONE 200-200-20MG/5ML ORAL LIQD 30 ML PO ONE (08:07)
[2021-04-08] MEDS ORDERED: ONDANSETRON 4 MG/2 ML INJ IV ONE (08:08)
[2021-04-08] MEDS ORDERED: PANTOPRAZOLE 40 MG INJ IV ONE (08:08)
[2021-04-08] MEDS ORDERED: SODIUM CHLORIDE 0.9% 1000 ML 1,000 ML IV ONE ×2 (08:14→11:29)
[2021-04-08 09:07] LABS: Basophils % (Auto) 0.8 % (0.0-1.8); Eosinophils % (Auto) 0.3 % (0.0-4.3); Hematocrit 37.6 % (30.3-42.9); Hemoglobin 12.8 gm/dl (10.1-14.3); Lymphocytes # (Auto) 1.3 K/mm3 (1.2-5.4); Lymphocytes % (Auto) 23.1 % (13.4-35.0); Mean Corpuscular HGB Conc 34 % (30-34); Mean Corpuscular Volume 84 fl (79-97); Monocytes # (Auto) 0.3 K/mm3 (0.0-0.8); Monocytes % (Auto) 5.9 % (0.0-7.3); Platelet Count 273 K/mm3 (140-440); Red Blood Count 4.46 M/mm3 (3.65-5.03); Red Cell Distribution Width 12.4 % (13.2-15.2)
[2021-04-08 09:27] LABS: Alanine Aminotransferase 11 units/L (7-56); Albumin 4.5 g/dL (3.9-5); Blood Urea Nitrogen 6 mg/dL (7-17); Calcium 9.2 mg/dL (8.4-10.2); Hemolysis Index 6
[2021-04-08 09:30] LABS: BUN/Creatinine Ratio 9
--- NOTE | 2021-04-08 09:57 | Emergency Department Report ---
ED Abdominal Pain HPI - General Chief Complaint: Abdominal Pain Stated Complaint: chest pain Time Seen by Provider: 04/08/21 07:47 Source: patient Mode of arrival: Ambulatory Limitations: No Limitations - History of Present Illness Initial Comments: 35-year-old female with a past medical history of asthma and ventral hernia repair presents to the hospital complaining of generalized burn abdominal pain with nausea vomiting x1 week. Pain is moderate to severe, constant, worse with palpation. patient was seen here for same symptoms on March 31 with same symptoms. Had negative CT abdomen pelvis at that time. Discharged on Bentyl and Zofran. Patient feels the Bentyl makes her pain worse. She then was subsequently seen at [facility] on the . She had repeat labs and x-ray performed. She received a "GI cocktail" and was referred to GI. Patient saw the GI doctor referred to her by [facility] on April 03. She was told that she might have an ulcer. She is scheduled for endoscopy in May. Patient is taking Zofran with improvement in nausea and vomiting. No vomiting the last 2 days with improved p.o. tolerance. However she has continued to have significant episodes of pain and has not slept in the last 2 days. Last night patient was feeling a squeezing pain in her chest, felt her heart racing, and felt short of breath and therefore came to the ED for reevaluation. She denies melena, hematochezia, or fever. Had 2 loose stools yesterday. Severity scale (0 -10): 4 - Related Data Home Medications Medication Instructions Recorded Confirmed Last Taken Acetaminophen [Tylenol Extra 500 mg PO BID 04/02/18 04/08/21 04/01/18 Strength] Omeprazole 20 mg PO QDAY PRN 04/02/18 04/08/21 Unknown raNITIdine HCL [Zantac 300 MG TAB] 300 mg PO QDAY PRN 04/02/18 04/08/21 Unknown Previous Rx's Medication Instructions Recorded Last Taken Type HYDROcodone/APAP 5-325 [[place] 1 each PO Q6HR PRN #14 tablet 11/12/17 Unknown Rx 5-325 mg TAB] Ibuprofen [Motrin] 800 mg PO Q8HR #30 tablet 07/04/18 Unknown Rx traMADoL [Ultram 50 MG tab] 50 mg PO Q6HR PRN #20 tablet 01/25/19 Unknown Rx Dicyclomine [Bentyl] 20 mg PO BID PRN #12 bottle 03/31/21 Unknown Rx Ondansetron [Zofran Odt] 4 mg PO Q8HR PRN #12 tab.rapdis 03/31/21 Unknown Rx Sucralfate [Carafate] 1 gm PO ACHS #20 tablet 04/08/21 Unknown Rx hydrOXYzine PAMOATE [Vistaril] 50 mg PO HS PRN #20 capsule 04/08/21 Unknown Rx Allergies Allergy/AdvReac Type Severity Reaction Status Date / Time amoxicillin [From Amoxil] Allergy Unknown Verified 03/30/21 21:43 ED Review of Systems ROS: Stated complaint: chest pain Other details as noted in HPI Comment: All other systems reviewed and negative ED Past Medical Hx - Past Medical History Hx Diabetes: No Hx Asthma: Yes (reactive airway) Hx HIV: No Additional medical history: ulcer,. abd pain, ventral hernia - Surgical History Additional Surgical History: ventral hernia repair - Social History Smoking Status: Unknown if ever smoked - Medications Home Medications: Home Medications Medication Instructions Recorded Confirmed Last Taken Type HYDROcodone/APAP 5-325 [[place] 1 each PO Q6HR PRN #14 tablet 11/12/17 04/08/21 Unknown Rx 5-325 mg TAB] Acetaminophen [Tylenol Extra 500 mg PO BID 04/02/18 04/08/21 04/01/18 History Strength] Omeprazole 20 mg PO QDAY PRN 04/02/18 04/08/21 Unknown History raNITIdine HCL [Zantac 300 MG TAB] 300 mg PO QDAY PRN 04/02/18 04/08/21 Unknown History Ibuprofen [Motrin] 800 mg PO Q8HR #30 tablet 07/04/18 04/08/21 Unknown Rx traMADoL [Ultram 50 MG tab] 50 mg PO Q6HR PRN #20 tablet 07/04/18 04/08/21 Unknown Rx Dicyclomine [Bentyl] 20 mg PO BID PRN #12 bottle 03/31/21 04/08/21 Unknown Rx Ondansetron [Zofran Odt] 4 mg PO Q8HR PRN #12 tab.rapdis 03/31/21 04/08/21 Unknown Rx Sucralfate [Carafate] 1 gm PO ACHS #20 tablet 04/08/21 Unknown Rx hydrOXYzine PAMOATE [Vistaril] 50 mg PO HS PRN #20 capsule 04/08/21 Unknown Rx ED Physical Exam - General Limitations: No Limitations - Other Other exam information: General: No acute distress Head: Atraumatic Eyes: normal appearance ENT: Moist mucous membranes Neck: Normal appearance, no midline tenderness Chest: Clear to auscultation bilaterally CV: Regular rate and rhythm Abdomen: Soft, normal bowel sounds, generalized abdominal tenderness greatest epigastric and mid abdomen, nondistended, no rebound or guarding Back: Normal inspection Extremity: Normal inspection, full range of motion Neuro: Alert O x 3, no facial asymmetry, speech clear, no gross motor sensory deficit Psych: Appropriate behavior Skin: No rash ED Course Vital Signs 04/08/21 04/08/21 04/08/21 07:57 07:58 08:00 Temperature 98.6 F Pulse Rate 74 80 Respiratory 10 L 14 Rate Blood Pressure 140/88 O2 Sat by Pulse 98 100 Oximetry 04/08/21 04/08/21 04/08/21 08:04 08:16 08:30 Temperature Pulse Rate 92 H 85 Respiratory 16 14 24 Rate Blood Pressure 126/85 118/82 O2 Sat by Pulse 100 98 99 Oximetry 04/08/21 04/08/21 04/08/21 08:46 09:00 09:16 Temperature Pulse Rate 70 57 L 66 Respiratory 13 15 16 Rate Blood Pressure 118/82 118/82 118/82 O2 Sat by Pulse 98 96 96 Oximetry 04/08/21 04/08/21 04/08/21 09:30 09:46 10:00 Temperature Pulse Rate 75 59 L 75 Respiratory 13 14 18 Rate Blood Pressure 123/72 132/74 139/74 O2 Sat by Pulse 97 97 95 Oximetry 04/08/21 10:16 Temperature Pulse Rate 67 Respiratory 15 Rate Blood Pressure 112/71 O2 Sat by Pulse 97 Oximetry ED Medical Decision Making - Lab Data Result diagrams: 04/08/21 08:44 04/08/21 08:44 Lab Results 04/08/21 04/08/21 04/08/21 Range/Units 08:44 08:44 08:44 WBC 5.6 (4.5-11.0) K/mm3 RBC 4.46 (3.65-5.03) M/mm3 Hgb 12.8 (10.1-14.3) gm/dl Hct 37.6 (30.3-42.9) % MCV 84 (79-97) fl MCH 29 (28-32) pg MCHC 34 (30-34) % RDW 12.4 L (13.2-15.2) % Plt Count 273 (140-440) K/mm3 Lymph % (Auto) 23.1 (13.4-35.0) % [place] % (Auto) 5.9 (0.0-7.3) % Eos % (Auto) 0.3 (0.0-4.3) % Baso % (Auto) 0.8 (0.0-1.8) % Lymph # (Auto) 1.3 (1.2-5.4) K/mm3 [place] # (Auto) 0.3 (0.0-0.8) K/mm3 Eos # (Auto) 0.0 (0.0-0.4) K/mm3 Baso # (Auto) 0.0 (0.0-0.1) K/mm3 Seg Neutrophils % 69.9 (40.0-70.0) % Seg Neutrophils # 3.9 (1.8-7.7) K/mm3 Sodium 141 (137-145) mmol/L Potassium 3.8 (3.6-5.0) mmol/L Chloride 104.5 (98-107) mmol/L Carbon Dioxide 23 (22-30) mmol/L Anion Gap 17 mmol/L BUN 6 L (7-17) mg/dL Creatinine 0.7 (0.6-1.2) mg/dL Estimated GFR > 60 ml/min BUN/Creatinine Ratio 9 % Glucose 102 H (65-100) mg/dL Calcium 9.2 (8.4-10.2) mg/dL Magnesium (1.7-2.3) mg/dL Total Bilirubin 0.70 (0.1-1.2) mg/dL AST 15 (5-40) units/L ALT 11 (7-56) units/L Alkaline Phosphatase 61 (35-129) units/L Troponin T < 0.010 (0.00-0.029) ng/mL Total Protein 8.6 H (6.3-8.2) g/dL Albumin 4.5 (3.9-5) g/dL Albumin/Globulin Ratio 1.1 % Lipase (13-60) units/L HCG, Qual Negative (Negative) 04/08/21 04/08/21 04/08/21 Range/Units 08:44 08:44 11:12 WBC (4.5-11.0) K/mm3 RBC (3.65-5.03) M/mm3 Hgb (10.1-14.3) gm/dl Hct (30.3-42.9) % MCV (79-97) fl MCH (28-32) pg MCHC (30-34) % RDW (13.2-15.2) % Plt Count (140-440) K/mm3 Lymph % (Auto) (13.4-35.0) % [place] % (Auto) (0.0-7.3) % Eos % (Auto) (0.0-4.3) % Baso % (Auto) (0.0-1.8) % Lymph # (Auto) (1.2-5.4) K/mm3 [place] # (Auto) (0.0-0.8) K/mm3 Eos # (Auto) (0.0-0.4) K/mm3 Baso # (Auto) (0.0-0.1) K/mm3 Seg Neutrophils % (40.0-70.0) % Seg Neutrophils # (1.8-7.7) K/mm3 Sodium (137-145) mmol/L Potassium (3.6-5.0) mmol/L Chloride (98-107) mmol/L Carbon Dioxide (22-30) mmol/L Anion Gap mmol/L BUN (7-17) mg/dL Creatinine (0.6-1.2) mg/dL Estimated GFR ml/min BUN/Creatinine Ratio % Glucose (65-100) mg/dL Calcium (8.4-10.2) mg/dL Magnesium 2.10 (1.7-2.3) mg/dL Total Bilirubin (0.1-1.2) mg/dL AST (5-40) units/L ALT (7-56) units/L Alkaline Phosphatase (35-129) units/L Troponin T < 0.010 (0.00-0.029) ng/mL Total Protein (6.3-8.2) g/dL Albumin (3.9-5) g/dL Albumin/Globulin Ratio % Lipase 42 (13-60) units/L HCG, Qual (Negative) 04/08/21 Range/Units 12:11 WBC (4.5-11.0) K/mm3 RBC (3.65-5.03) M/mm3 Hgb (10.1-14.3) gm/dl Hct (30.3-42.9) % MCV (79-97) fl MCH (28-32) pg MCHC (30-34) % RDW (13.2-15.2) % Plt Count (140-440) K/mm3 Lymph % (Auto) (13.4-35.0) % [place] % (Auto) (0.0-7.3) % Eos % (Auto) (0.0-4.3) % Baso % (Auto) (0.0-1.8) % Lymph # (Auto) (1.2-5.4) K/mm3 [place] # (Auto) (0.0-0.8) K/mm3 Eos # (Auto) (0.0-0.4) K/mm3 Baso # (Auto) (0.0-0.1) K/mm3 Seg Neutrophils % (40.0-70.0) % Seg Neutrophils # (1.8-7.7) K/mm3 Sodium (137-145) mmol/L Potassium (3.6-5.0) mmol/L Chloride (98-107) mmol/L Carbon Dioxide (22-30) mmol/L Anion Gap mmol/L BUN (7-17) mg/dL Creatinine (0.6-1.2) mg/dL Estimated GFR ml/min BUN/Creatinine Ratio % Glucose (65-100) mg/dL Calcium (8.4-10.2) mg/dL Magnesium (1.7-2.3) mg/dL Total Bilirubin (0.1-1.2) mg/dL AST (5-40) units/L ALT (7-56) units/L Alkaline Phosphatase (35-129) units/L Troponin T < 0.010 (0.00-0.029) ng/mL Total Protein (6.3-8.2) g/dL Albumin (3.9-5) g/dL Albumin/Globulin Ratio % Lipase (13-60) units/L HCG, Qual (Negative) - Radiology Data Radiology results: report reviewed ABDOMEN 3 VIEW(S) INDICATION / CLINICAL INFORMATION: cp, abd pain. COMPARISON: CT scan dated 03/30/2021 FINDINGS: TUBES / LINES: None. BOWEL GAS PATTERN: No significant abnormality. FREE AIR / EXTRALUMINAL GAS: None seen. ADDITIONAL FINDINGS: Changes of prior ventral hernia repair with mesh are noted. CHEST: Visualized chest shows no significant abnormality. IMPRESSION: 1. No acute abnormality. - Medical Decision Making 35-year-old female presents to the hospital with persistent abdominal pain now complaining of pain radiating to chest and intermittent palpitations. Her ED stay patient did not have a heart rate greater than 100. She did rest for several hours after receiving Ativan, Zofran, Protonix, and IV fluids. Once again labs unremarkable. X-ray does not show signs of obstruction. EKG without acute ischemic findings. Heart score equals 1. Troponin negative x3. At time of discharge patient is able to tolerate p.o. intake. Will be discharged on Carafate and Vistaril for sleep to add to her current medication. Continue outpatient follow-up advised Critical Care Time: No Critical care attestation.: If time is entered above; I have spent that time in minutes in the direct care of this critically ill patient, excluding procedure time. ED Disposition Clinical Impression: Abdominal pain, Nausea & vomiting, GERD (gastroesophageal reflux disease) Disposition: 01 HOME / SELF CARE / HOMELESS Is pt being admited?: No Does the pt Need Aspirin: No Condition: Stable Instructions: Abdominal Pain (ED), Gastroesophageal Reflux Disease, Adult, Abdominal Pain, Adult Additional Instructions: Take the medication as prescribed. Follow-up with your doctor or doctor/clinic provided. Return if symptoms worsen as indicated by your discharge instructions. Prescriptions: Sucralfate [Carafate] 1 gm PO ACHS #20 tablet hydrOXYzine PAMOATE [Vistaril] 50 mg PO HS PRN #20 capsule PRN Reason: Insomnia Referrals: [facility] [Provider Group] - 3-5 Days PRIMARY CARE, [Primary Care Provider] - 3-5 Days Time of Disposition: 13:58 HEART Score - HEART Score History: Slightly suspicious EKG: Non-specific Age: < 45 Risk factors: No known risk factors Troponin: Troponin T < 0.010 ng/mL (0.00-0.029) 04/08/21 12:11 Troponin: < normal limit HEART Score: 1
--- NOTE | 2021-04-08 11:02 | XRay Report ---
ABDOMEN 3 VIEW(S) INDICATION / CLINICAL INFORMATION: cp, abd pain. COMPARISON: CT scan dated 03/30/2021 FINDINGS: TUBES / LINES: None. BOWEL GAS PATTERN: No significant abnormality. FREE AIR / EXTRALUMINAL GAS: None seen. ADDITIONAL FINDINGS: Changes of prior ventral hernia repair with mesh are noted. CHEST: Visualized chest shows no significant abnormality. IMPRESSION: 1. No acute abnormality. Signer Name: Brayan Srinivasan MD Signed: 04/08/2021 10:58 AM Workstation Name: [id number]
[2021-04-08 14:34] VITALS: BP 135/76
== END 2021-04-08 14:34 | disposition home or self-care (01) ==
LOC: ED 07:41
DX: K21.9 Gastro-esophageal reflux disease without esophagitis (principal); R11.2 Nausea with vomiting, unspecified; J45.909 Unspecified asthma, uncomplicated; Z98.890 Other specified postprocedural states; Z79.899 Other long term (current) drug therapy; Z88.1 Allergy status to other antibiotic agents
CPT/HCPCS: 36415; 74022; 80053; 83690; 83735; 84484; 84703; 85025; 96361; 96374; 96375; 99284; C9113; J2405; J7030